=== PATIENT | female | born 1980 | race Caucasian/White ===

== ENCOUNTER 2022-04-09 20:46 | Emergency (ER) | payer MEDICAID ==
[~2022-04-09] VITALS: Ht 165.1 cm; Wt 75.0 kg
[2022-04-09 20:57] VITALS: BP 141/82
== END 2022-04-10 03:32 | disposition left against medical advice (07) ==
LOC: ER 20:46
DX: Z53.21 Procedure and treatment not carried out due to patient leaving prior to being seen by health care provider (principal)